=== PATIENT | female | born 1970 | race Caucasian/White ===

== ENCOUNTER 2024-12-22 16:07 | Day surgery (SDC) | payer OTHER ==
[2024-12-22] MEDS ORDERED: methylPREDNISolone acetate IM ONE (16:08)
[2024-12-22] MEDS ORDERED: BUPIVACAINE 0.5% VIAL IJ ONE (16:08)
[2024-12-22] MEDS ORDERED: LIDOCAINE HCL 1% 50 MG/5 ML VL IJ ONE (16:08)
[2024-12-22 16:26] LABS: HCG URINE TEST NEGATIVE (NEGATIVE)
--- NOTE | 2024-12-22 19:38 | XRAY ---
Indication: Bilateral SI joint injection. Intraoperative fluoroscopy provided for 31 seconds. 2 digital spot images submitted for interpretation demonstrates posterior needle tip projecting over left and right SI joints. Small amount of contrast injected for needle tip placement. Correlate with intraoperative findings/report.
--- NOTE | 2024-12-23 08:47 | XRAY ---
31 seconds of fluoroscopy used in surgery for bilateral sacroiliac joint injections.
== END 2024-12-22 18:49 | disposition home or self-care (01) ==
LOC: SDC-PAIN 16:07
PROVIDERS: ATTEND Psychiatry & Neurology Pain Medicine
DX: M46.1 Sacroiliitis, not elsewhere classified (principal); R73.03 Prediabetes

== ENCOUNTER 2025-02-16 07:40 | Day surgery (SDC) | payer OTHER ==
[2025-02-16] MEDS ORDERED: LIDOCAINE HCL 2% 100 MG/5 ML IJ ONE (07:41)
[2025-02-16] MEDS ORDERED: methylPREDNISolone acetate IM ONE (07:41)
[2025-02-16 08:20] LABS: HCG URINE TEST NEGATIVE (NEGATIVE)
[2025-02-16] MEDS ORDERED: propofoL IV ONE (09:10)
[2025-02-16] MEDS ORDERED: Lactated Ringers 1,000 ML IV ONE (10:05)
--- NOTE | 2025-02-16 11:41 | XRAY ---
Indication: Bilateral L4-S1 MBB. Intraoperative fluoroscopy provided for 14 seconds. Single digital spot image submitted for interpretation demonstrates posterior needle tips projecting over expected left and right L4-S1 nerve roots. Correlate with intraoperative findings/report.
--- NOTE | 2025-02-16 12:34 | XRAY ---
14 seconds of fluoroscopy was used in surgery for a bilateral L4-S1 MBB.
== END 2025-02-16 09:44 | disposition home or self-care (01) ==
LOC: SDC-PAIN 07:40
PROVIDERS: ATTEND Psychiatry & Neurology Pain Medicine
DX: M47.817 Spondylosis without myelopathy or radiculopathy, lumbosacral region (principal); R73.03 Prediabetes